=== PATIENT | male | born 2000 | race Caucasian/White ===

== ENCOUNTER 2021-10-20 09:37 | Outpatient (CLI) | payer OTHER, MEDICAID, SELFPAY ==
[2021-10-20 09:55] VITALS: BP 117/82; PULSE 110; RESP 20; TEMP 36.8; O2SAT 92; BMI 30.2
[2021-10-20] MEDS: 0.9% Saline Lock 10 ML Syringe IV (10:17)
[2021-10-20 10:57] VITALS: BP 114/81; PULSE 80; RESP 16; TEMP 36.4; O2SAT 93
[2021-10-20 11:44] VITALS: BP 119/78; PULSE 88; RESP 18; TEMP 36.3; O2SAT 94
== END 2021-10-20 12:01 | disposition home or self-care (01) ==
LOC: MS3OUT 09:37 → MS3 09:37
PROVIDERS: Referring Provider Nurse Practitioner Adult Health; Visit Provider Nurse Practitioner Adult Health
DX: Z23 Encounter for immunization (principal); U07.1 COVID-19
CPT/HCPCS: J7050; M0245; Q0245; A4216